=== PATIENT | male | born 1950 | race Caucasian/White ===

== ENCOUNTER 2017-09-10 07:25 | Day surgery (SDC) | payer MEDICARE, OTHER ==
[~2017-09-10 07:25] MED LIST: Cefuroxime 10 MG/ML SYRINGE EYERT SCH; Lidocaine 1% PF 2 ML SDV INJECT SCH; Pilocarpine 4% Ophth Soln 15 ML Bot EYERT SCH
[2017-09-10] MEDS: Polymyxin B/Trimethoprim 10 ML Bottle EYERT SCH ×3 (07:33→09:17)
[2017-09-10] MEDS: Brimonidine 0.2% Ophth Soln 5 ML Bottle EYERT SCH ×3 (07:37→09:17)
[2017-09-10] MEDS: Phenylephrine 2.5% Ophth Soln 2 ML Bot EYERT SCH ×5 (07:40→09:04)
[2017-09-10] MEDS: Tropicamide 1% Ophth Soln 3 ML Bottle EYERT SCH ×4 (07:43→08:35)
--- NOTE | 2017-09-10 07:48 | PCM.PREANE ---
Preanesthetic Assessment - Anesthesia/Transfusion/Family Hx Anesthesia History: Prior Anesthesia Without Reaction Family History of Anesthesia Reaction: No Transfusion History: No Prior Transfusion(s) - Review of Systems General: Other (lymphoma) Pulmonary: Shortness of Breath (with activity), Other (asthma) Cardiovascular: Other (HTN, murmur) Gastrointestinal: Other (reflux controlled on meds) Neurological: No Symptoms Other: Reports: Diabetes (glucose 134 at 0745) - Physical Assessment NPO Status Date: 09/09/17 NPO Status Time: 02:30 (liquids) Pulse: 63 O2 Sat by Pulse Oximetry: 99 Respiratory Rate: 16 Blood Pressure: 145/69 Weight: 117.934 kg ASA Class: 3 Mental Status: Alert & Oriented x3 Dentition: Reports: Normal Dentition Thyro-Mental Finger Breadths: 3 Mouth Opening Finger Breadths: 3 ROM/Head Extension: Full Lungs: Clear to Auscultation, Normal Respiratory Effort Cardiovascular: Regular Rate, Regular Rhythm, Murmurs - Allergies Allergies/Adverse Reactions: Allergies Allergy/AdvReac Type Severity Reaction Status Date / Time iodine Allergy Rash Verified 09/09/17 10:45 oxycodone Allergy Rash Verified 09/09/17 10:45 Penicillins Allergy Rash Verified 09/09/17 10:45 - Blood Blood Available: No Product(s) Available: None - Anesthesia Plan Pre-Op Medication Ordered: None - Acknowledgements Anesthesia Type Planned: MAC Pt an Appropriate Candidate for the Planned Anesthesia: Yes Alternatives and Risks of Anesthesia Discussed w Pt/Guardian: Yes Pt/Guardian Understands and Agrees with Anesthesia Plan: Yes PreAnesthesia Questionnaire - HOME MEDS Home Medications: Home Meds Albuterol Sulfate [Proair Respiclick] 2 puff IH ASDIRECTED PRN 09/09/17 [History ] Aspirin [Halfprin] 81 mg PO DAILY 09/09/17 [History] Baclofen 10 mg PO TID PRN 09/09/17 [History] Dulaglutide [Trulicity] 0.75 mg SQ TU 09/09/17 [History] Gluc 2KCl/Chondr/Mel Hy/Hy Ac [Glucosamine & Chondroitin Cap] 2 cap PO DAILY [History] Lutein/Min/Vit C/Vit E Acetate [Ocuvite Lutein] 1 cap PO DAILY 09/09/17 [History ] Meloxicam 15 mg PO Q12H 09/09/17 [History] atorvaSTATin [Lipitor] 40 mg PO DAILY 09/09/17 [History] metFORMIN [Glucophage] 1,000 mg PO BIDMEALS 09/09/17 [History] - CURRENT (IN HOUSE) MEDS Current Meds: Current Medications Brimonidine Tartrate (Alphagan 0.2% Ophth Soln) 0 ml EYERT ASDIRECTED ANA Stop: 09/10/17 18:00 Last Admin: 09/10/17 07:37 Dose: 1 drop Cefuroxime Sodium (Zinacef) 0 mg EYERT ASDIRECTED ANA Stop: 09/10/17 18:00 Lidocaine HCl (Xylocaine-Mpf 1%) 0 ml INJECT ASDIRECTED ANA Stop: 09/10/17 18:00 Phenylephrine HCl (Stanford-Synephrine 2.5% Ophth Soln) 0 ml EYERT ASDIRECTED ANA Stop: 09/10/17 18:00 Pilocarpine HCl (Pilocar 4% Ophth Soln) 0 ml EYERT ASDIRECTED ANA Stop: 09/10/17 18:00 Polymyxin/Trimethoprim Sulfate (Polytrim Ophth Soln) 0 ml EYERT ASDIRECTED ANA Stop: 09/10/17 18:00 Last Admin: 09/10/17 07:33 Dose: 1 drop Tetracaine HCl (Tetracaine 0.5% Steri-Unit Alda) 0 ml EYERT ASDIRECTED ANA Stop: 09/10/17 18:00 Tropicamide (Mydriacyl 1% Ophth Soln) 0 ml EYERT ASDIRECTED ANA Stop: 09/10/17 18:00
[2017-09-10] MEDS: Tetracaine HCl/PF 0.5% 4 ML Bottle EYERT SCH ×2 (08:51→09:09)
--- NOTE | 2017-09-10 09:22 | PCM48HPAN ---
Post Anesthesia Note - EVALUATION WITHIN 48HRS OF ANESTHETIC Vital Signs in Normal Range: Yes Patient Participated in Evaluation: Yes Respiratory Function Stable: Yes Airway Patent: Yes Cardiovascular Function Stable: Yes Hydration Status Stable: Yes Pain Control Satisfactory: Yes Nausea and Vomiting Control Satisfactory: Yes Mental Status Recovered: Yes Pulse Rate: 61 SaO2: 100 Resp Rate: 16 Blood Pressure: 147/88
== END 2017-09-10 09:30 | disposition home or self-care (01) ==
LOC: JD.SDS 07:25
PROVIDERS: ATTEND Ophthalmology
DX: H25.813 Combined forms of age-related cataract, bilateral (principal); I10 Essential (primary) hypertension; E10.9 Type 1 diabetes mellitus without complications; E78.00 Pure hypercholesterolemia, unspecified; J45.909 Unspecified asthma, uncomplicated; H16.223 Keratoconjunctivitis sicca, not specified as Sjogren's, bilateral; H35.363 Drusen (degenerative) of macula, bilateral; H35.3132 Nonexudative age-related macular degeneration, bilateral, intermediate dry stage; H02.831 Dermatochalasis of right upper eyelid; H16.103 Unspecified superficial keratitis, bilateral; H02.834 Dermatochalasis of left upper eyelid; Z79.899 Other long term (current) drug therapy; K21.9 Gastro-esophageal reflux disease without esophagitis; Z79.82 Long term (current) use of aspirin; Z79.84 Long term (current) use of oral hypoglycemic drugs; Z88.0 Allergy status to penicillin; Z88.5 Allergy status to narcotic agent
CPT/HCPCS: 66984; 82962; C1780; J0697; J2001; A9270-GY

== ENCOUNTER 2017-10-08 07:22 | Day surgery (SDC) | payer MEDICARE, OTHER ==
[~2017-10-08 07:22] MED LIST changes: +Cefuroxime 10 MG/ML SYRINGE EYELF SCH; -Cefuroxime 10 MG/ML SYRINGE EYERT SCH; +Pilocarpine 4% Ophth Soln 15 ML Bot EYELF SCH; -Pilocarpine 4% Ophth Soln 15 ML Bot EYERT SCH
--- NOTE | 2017-10-08 07:36 | PCM.PREANE ---
Preanesthetic Assessment - Anesthesia/Transfusion/Family Hx Anesthesia History: Prior Anesthesia Without Reaction Family History of Anesthesia Reaction: No Transfusion History: No Prior Transfusion(s) - Review of Systems General: No Symptoms, Other (lymphoma) Pulmonary: Other (asthma, controlled) Cardiovascular: Other (HTN, +murmur) Gastrointestinal: No Symptoms Neurological: No Symptoms Other: Reports: Diabetes (non-insulin dependent) - Physical Assessment NPO Status Date: 10/07/17 NPO Status Time: 19:00 Pulse: 75 O2 Sat by Pulse Oximetry: 95 Respiratory Rate: 16 Blood Pressure: 139/75 Weight: 117.934 kg ASA Class: 3 Mental Status: Alert & Oriented x3 Airway Class: Mallampati = 2 Dentition: Reports: Normal Dentition Thyro-Mental Finger Breadths: 2 Mouth Opening Finger Breadths: 2 ROM/Head Extension: Limited/Partial Lungs: Clear to Auscultation, Normal Respiratory Effort Cardiovascular: Regular Rate, Regular Rhythm - Allergies Allergies/Adverse Reactions: Allergies Allergy/AdvReac Type Severity Reaction Status Date / Time iodine Allergy Rash Verified 10/07/17 12:48 oxycodone Allergy Rash Verified 10/07/17 12:48 Penicillins Allergy Rash Verified 10/07/17 12:48 - Blood Blood Available: No Product(s) Available: None - Anesthesia Plan Pre-Op Medication Ordered: None - Acknowledgements Anesthesia Type Planned: MAC Pt an Appropriate Candidate for the Planned Anesthesia: Yes Alternatives and Risks of Anesthesia Discussed w Pt/Guardian: Yes Pt/Guardian Understands and Agrees with Anesthesia Plan: Yes PreAnesthesia Questionnaire - HOME MEDS Home Medications: Home Meds Albuterol Sulfate [Proair Respiclick] 2 puff IH ASDIRECTED PRN 09/09/17 [History ] Aspirin [Halfprin] 81 mg PO DAILY 09/09/17 [History] Baclofen 10 mg PO TID PRN 09/09/17 [History] Dulaglutide [Trulicity] 0.75 mg SQ TU 09/09/17 [History] Gluc 2KCl/Chondr/Mel Hy/Hy Ac [Glucosamine & Chondroitin Cap] 2 cap PO DAILY [History] Lutein/Min/Vit C/Vit E Acetate [Ocuvite Lutein] 1 cap PO DAILY 09/09/17 [History ] atorvaSTATin [Lipitor] 40 mg PO DAILY 09/09/17 [History] metFORMIN [Glucophage] 1,000 mg PO BIDMEALS 09/09/17 [History] Gabapentin [Neurontin] 100 mg PO TID 10/07/17 [History] - CURRENT (IN HOUSE) MEDS Current Meds: Current Medications Brimonidine Tartrate (Alphagan 0.2% Ophth Soln) 0 ml EYELF ASDIRECTED ANA Stop: 10/08/17 19:00 Cefuroxime Sodium (Zinacef) 0 mg EYELF ASDIRECTED ANA Stop: 10/08/17 19:00 Lidocaine HCl (Xylocaine-Mpf 1%) 0 ml INJECT ONETIME ANA Stop: 10/08/17 19:00 Phenylephrine HCl (Stanford-Synephrine 2.5% Ophth Soln) 0 ml EYELF ASDIRECTED ANA Stop: 10/08/17 19:00 Pilocarpine HCl (Pilocar 4% Ophth Soln) 0 ml EYELF ASDIRECTED ANA Stop: 10/08/17 19:00 Polymyxin/Trimethoprim Sulfate (Polytrim Ophth Soln) 0 ml EYELF ASDIRECTED ANA Stop: 10/08/17 19:00 Tetracaine HCl (Tetracaine 0.5% Steri-Unit Alda) 0 ml EYELF ASDIRECTED ANA Stop: 10/08/17 19:00 Tropicamide (Mydriacyl 1% Ophth Soln) 0 ml EYELF ASDIRECTED ANA Stop: 10/08/17 19:00
[2017-10-08] MEDS: Polymyxin B/Trimethoprim 10 ML Bottle EYELF SCH ×3 (07:37→09:26)
[2017-10-08] MEDS: Brimonidine 0.2% Ophth Soln 5 ML Bottle EYELF SCH ×3 (07:40→09:26)
[2017-10-08] MEDS: Phenylephrine 2.5% Ophth Soln 2 ML Bot EYELF SCH ×4 (07:43→08:26)
[2017-10-08] MEDS: Tropicamide 1% Ophth Soln 3 ML Bottle EYELF SCH ×4 (07:47→08:37)
[2017-10-08] MEDS: Tetracaine HCl/PF 0.5% 4 ML Bottle EYELF SCH ×3 (08:54→09:13)
--- NOTE | 2017-10-08 09:28 | PCM48HPAN ---
Post Anesthesia Note - EVALUATION WITHIN 48HRS OF ANESTHETIC Vital Signs in Normal Range: Yes Patient Participated in Evaluation: Yes Respiratory Function Stable: Yes Airway Patent: Yes Cardiovascular Function Stable: Yes Hydration Status Stable: Yes Pain Control Satisfactory: Yes Nausea and Vomiting Control Satisfactory: Yes Mental Status Recovered: Yes Pulse Rate: 66 SaO2: 98 Resp Rate: 14 Temperature: 36.6 C Blood Pressure: 121/62
== END 2017-10-08 09:36 | disposition home or self-care (01) ==
LOC: JD.SDS 07:22
PROVIDERS: ATTEND Ophthalmology
DX: E10.36 Type 1 diabetes mellitus with diabetic cataract (principal); H25.812 Combined forms of age-related cataract, left eye; I10 Essential (primary) hypertension; J45.909 Unspecified asthma, uncomplicated; H91.90 Unspecified hearing loss, unspecified ear; E78.00 Pure hypercholesterolemia, unspecified; H35.363 Drusen (degenerative) of macula, bilateral; H35.3131 Nonexudative age-related macular degeneration, bilateral, early dry stage; H02.831 Dermatochalasis of right upper eyelid; H16.103 Unspecified superficial keratitis, bilateral; H16.223 Keratoconjunctivitis sicca, not specified as Sjogren's, bilateral; H02.834 Dermatochalasis of left upper eyelid; Z87.891 Personal history of nicotine dependence; Z79.4 Long term (current) use of insulin; Z96.1 Presence of intraocular lens; Z98.41 Cataract extraction status, right eye; Z79.899 Other long term (current) drug therapy; Z88.0 Allergy status to penicillin; Z88.5 Allergy status to narcotic agent; Z91.048 Other nonmedicinal substance allergy status
CPT/HCPCS: 66984; C1780; J0697; J2001; A9270-GY

== ENCOUNTER 2020-10-05 14:19 | Emergency (ER) | payer MEDICARE, OTHER ==
--- NOTE | 2020-10-05 14:30 | EDM.PDOC ---
ED HPI GENERAL MEDICAL PROBLEM - General Chief Complaint: Trauma Stated Complaint: [facility] Time Seen by Provider: 10/05/20 14:25 Source of Information: Reports: Patient, EMS, Shelter Records History Limitations: Reports: Altered Mental Status - History of Present Illness INITIAL COMMENTS - FREE TEXT/NARRATIVE: 70-year-old male who is currently a resident of [facility] presents to the ED for evaluation after an unwitnessed fall in his room this afternoon. He was appreciated to have a laceration mid vertex of his scalp with minimal bleeding. No reported loss of consciousness but history from the patient is unreliable. He denies any cervical neck pain. He moves all limbs without any issue. No back pain no rib pain no abdominal pain. He denies headache nausea or vomiting. He declines tetanus diphtheria and pertussis vaccine. Patient carries a diagnosis of progressive supranuclear ophthalmoplegia bracket [id number] [facility] this patient cannot walk normally and therefore has a high propensity to falling. Onset: Today, Sudden Onset Date: 10/05/20 (Cannot clarify exactly when he fell.) Duration: Minutes: Location: Reports: Head, Upper Extremity, Left (Superficial abrasion left elbow), Lower Extremity, Left (Superficial abrasion left knee) Quality: Reports: Ache Severity: Mild (Mild ache at site of laceration) Improves with: Reports: Other (No active bleeding) Worsens with: Reports: None Context: Reports: Trauma (Unwitnessed fall [facility] Denies: Activity, Exercise, Lifting, Sick Contact Associated Symptoms: Denies: Chest Pain, Cough, cough w sputum, Diaphoresis, Fever/Chills, Headaches, Loss of Appetite, Malaise, Nausea/Vomiting, Rash, Seizure, Shortness of Breath, Syncope, Weakness Treatments [employer]PER[employer]: Reports: Other (see below) (None.) - Related Data Allergies Allergy/AdvReac Type Severity Reaction Status Date / Time hydrocodone Allergy Cannot Verified 10/05/20 14:55 Remember iodine Allergy Rash Verified 10/07/17 12:48 oxycodone Allergy Rash Verified 10/07/17 12:48 Penicillins Allergy Rash Verified 10/07/17 12:48 Home Meds: Home Meds Albuterol Sulfate [Proair Respiclick] 2 puff IH ASDIRECTED PRN 09/09/17 [History] atorvaSTATin [Lipitor] 40 mg PO DAILY 09/09/17 [History] metFORMIN [Glucophage] 250 mg PO DAILY 09/09/17 [History] Gabapentin [Neurontin] 600 mg PO DAILY 10/07/17 [History] Aspirin 81 mg PO DAILY 10/05/20 [History] Donepezil HCl 10 mg PO BEDTIME 10/05/20 [History] FLUoxetine HCl [Prozac] 20 mg PO DAILY 10/05/20 [History] Fish Oil/Quartzsite-3 Fatty Acids [Fish Oil 1,000 MG] 1 gm PO DAILY 10/05/20 [History] Glucosam/Chond/Collagen/Hyalur [Glucosamine Chondroitin] 1 each PO BID 10/05/20 [History] Lutein/Min/Vit C/Vit E Acetate [Ocuvite Lutein] 1 each PO DAILY 10/05/20 [History] Multivit-Min/FA/Lycopen/Lutein [Certavite Sr with Lutein Tab] 1 each PO BID 10/05/20 [History] Omeprazole 20 mg PO BID 10/05/20 [History] bisacodyL [Dulcolax] 10 mg PO ASDIRECTED PRN 10/05/20 [History] Past Medical History Cardiovascular History: Reports: High Cholesterol, Other (See Below) (Valvular heart disease) Respiratory History: Reports: COPD (With reversible component) Gastrointestinal History: Reports: GERD (With esophagitis) Genitourinary History: Reports: BPH Psychiatric History: Reports: Depression (History of major depression) Endocrine/Metabolic History: Reports: Diabetes, Type II Other Endocrine/Metabolic History: Type 2 diabetes controlled with Trulicity once weekly 75 mg and Metformin 1 g twice daily Social & Family History - Living Situation & Occupation Living situation: Reports: , Extended Care Facility (Currently a resident of [facility].) Occupation: Disabled Review of Systems - Review of Systems Review Of Systems: See Below Constitutional: Denies: Chills, Diaphoresis, Fever, Weakness, Other Eyes: Reports: No Symptoms Ears: Reports: No Symptoms Nose: Reports: No Symptoms Mouth/Throat: Reports: No Symptoms Respiratory: Reports: No Symptoms Cardiovascular: Reports: No Symptoms GI/Abdominal: Reports: No Symptoms Musculoskeletal: Reports: No Symptoms Skin: Reports: No Symptoms Neurological: Reports: No Symptoms Psychiatric: Reports: No Symptoms ED EXAM, GENERAL - Physical Exam Exam: See Below General Appearance: Alert, WD/WN, Mild Distress, Other (Temperature is 36.1. Heart rate is 71 and sinus. Respiratory is 18 with sats of 93 to 95%. BP 123/63.) Eye Exam: Bilateral Eye: Normal Inspection (No sclericterus or blepharal pallor.) Throat/Mouth: Normal Inspection, Normal Lips, Normal Oropharynx, Other (No obvious ) Head: Other (injuries to his tongue or dentition. Patient does have a superficial lacerations deep abrasion to his mid vertex of his scalp that is not actively bleeding. It will be cleaned up but I do not believe that is going to require suture repair.) Neck: Normal Inspection, Supple, Non-Tender, Full Range of Motion, Other. No: Carotid Bruit, Lymphadenopathy (L), Lymphadenopathy (R) Respiratory/Chest: No Respiratory Distress, Lungs Clear, Normal Breath Sounds, No Accessory Muscle Use (Has complete unopposed range of motion of his cervical spine.), Other (No pain on compression of his ribs collarbones or sternum.) Cardiovascular: Normal Peripheral Pulses, Regular Rate, Rhythm, No Edema, No Gallop, No Murmur, No Rub Peripheral Pulses: 2+: Posterior Tibial (L), Posterior Tibial (R), Dorsalis Pedis (L), Dorsalis Pedis (R), 3+: Carotid (L), Carotid (R) GI/Abdominal: Normal Bowel Sounds, Soft, Non-Tender, No Organomegaly, No Abnormal Bruit, No Mass, Pelvis Stable. No: Guarding, Rigid, Rebound Back Exam: Normal Inspection, Full Range of Motion, Other (No injuries to the thoracic or lumbar spine with no abrasions or contusions.). No: CVA Tenderness (L), CVA Tenderness (R) Extremities: Normal Range of Motion, Non-Tender, No Pedal Edema, Other (Patient has a superficial abrasion to his left posterior elbow and left anterior knee over the patella without any signs of bony injuries.) Neurological: Alert, Oriented, CN II-XII Intact, Normal Cognition, Normal Gait Psychiatric: Normal Affect, Normal Mood Skin Exam: Warm, Dry, Intact, Normal Color, No Rash Course - Vital Signs Last Recorded V/S: Last Vital Signs Temp 36.1 C 10/05/20 14:25 Pulse 71 10/05/20 14:25 Resp 18 10/05/20 14:25 BP 123/63 10/05/20 14:25 Pulse Ox 93 L 10/05/20 14:25 - Orders/Labs/Meds Orders: Active Orders 24 hr Category Date Time Status Blood Glucose Check, Bedside [RC] ONETIME Care 10/05/20 14:29 Active Labs: Laboratory Tests 10/05/20 Range/Units 14:35 POC Glucose 129 H (70-99) mg/dL - Radiology Interpretation Free Text/Narrative:: 70-year-old male who is currently a resident of [facility] presents to the ED per [place] [facility]. Apparently he was found on the floor of his room and therefore suffered an unwitnessed fall. It is unclear if he lost consciousness. He cannot report to me that he hit any furniture. He has a superficial laceration deep abrasion to the mid vertex aspect of his scalp that measures a little over a centimeter in length. He does not appear deep enough to require suture repair. There is a very minimal surrounding scalp hematoma. He has full unopposed range of motion of his cervical spine. Chest wall and abdomen are normal. He has superficial abrasion to his left elbow and left knee with full range of motion and no bony injury. Plan CT head to be done. - Re-Assessments/Exams Free Text/Narrative Re-Assessment/Exam: 10/05/20 14:58 CT of the head reveals it degenerative changes appropriate for the patient's age. There is perhaps slightly increased atrophy of both frontal lobes as compared to normal. There is prominence of the sulci. Diffuse small vessel ischemic change appreciated in both basal ganglia. No intracranial bleeding no mass-effect and no skull fractures identified. Patient is superficial abrasion to vertex of scalp will not really require any laceration repair. Requires bacitracin ointment once daily until healed. He will be returned to the retirement. Departure - Departure Time of Disposition: 15:01 Disposition: DC/Tfer to [facility] Condition: Fair Clinical Impression: Abrasion of left elbow, initial encounter, Abrasion, left knee, initial encounter Fall at retirement Qualifiers: Encounter type: initial encounter Qualified Code(s): W19.XXXA - Unspecified fall, initial encounter Scalp abrasion Qualifiers: Encounter type: initial encounter Qualified Code(s): S00.01XA - Abrasion of scalp, initial encounter - Discharge Information *PRESCRIPTION DRUG MONITORING PROGRAM REVIEWED*: Not Applicable *COPY OF PRESCRIPTION DRUG MONITORING REPORT IN PATIENT YASMIN: Not Applicable Instructions: Facial or Scalp Contusion, [id number] Forms: ED Department Discharge Additional Instructions: Evaluation in the emergency room today at the request of [facility] where you were currently residing. You apparently were found on the floor of your room having sustained an unwitnessed fall. You have a mild contusion to the mid vertex of the scalp with superficial abrasion which was bleeding. CT scan of the head reveals no intracranial bleeding or mass-effect or skull fracture. Treatment of the wound is to daily cleanse it with soap and water. Shampoo is okay. Then apply topical antibiotic such as bacitracin or Polysporin once daily to the wound until healed. Other injuries include superficial abrasion to the left posterior elbow and left anterior knee with no bony injuries identified. No other treatment is required. Continue all current medications as previously prescribed Sepsis Event Note (ED) - Focused Exam Vital Signs: Vital Signs Temp Pulse Resp BP Pulse Ox 10/05/20 14:25 36.1 C 71 18 123/63 93 L - My Orders Last 24 Hours: My Active Orders 10/05/20 14:29 Blood Glucose Check, Bedside [RC] ONETIME - Assessment/Plan Last 24 Hours: My Active Orders 10/05/20 14:29 Blood Glucose Check, Bedside [RC] ONETIME
--- NOTE | 2020-10-05 14:58 | CT ---
Head CT Technique: Multiple axial sections through the brain were obtained. Intravenous contrast was not utilized. Reconstructed coronal and sagittal images were also obtained. Comparison: No prior intracranial imaging is available. Findings: Ventricles along with basal cisterns and sulci over the convexities are mildly prominent. Slight atrophy is seen within both frontal regions. No abnormal parenchymal densities are seen. No evidence of intracranial hemorrhage. No midline shift or mass-effect is appreciated. Bone window settings were reviewed. Visualized mastoid and paranasal sinuses show nothing acute. No acute calvarial finding is seen. Impression: 1. Senescent change as described above. 2. Nothing acute is appreciated on noncontrast head CT study. Diagnostic code #2
== END 2020-10-05 16:00 ==
LOC: JD.ED 14:19
DX: S00.01XA Abrasion of scalp, initial encounter (principal); S50.312A Abrasion of left elbow, initial encounter; S80.212A Abrasion, left knee, initial encounter; E78.00 Pure hypercholesterolemia, unspecified; J44.9 Chronic obstructive pulmonary disease, unspecified; K21.9 Gastro-esophageal reflux disease without esophagitis; E11.9 Type 2 diabetes mellitus without complications; Z79.82 Long term (current) use of aspirin; Z79.84 Long term (current) use of oral hypoglycemic drugs; Z88.0 Allergy status to penicillin; Z88.5 Allergy status to narcotic agent; Z91.040 Latex allergy status; W18.39XA Other fall on same level, initial encounter; W26.8XXA Contact with other sharp object(s), not elsewhere classified, initial encounter; Y92.009 Unspecified place in unspecified non-institutional (private) residence as the place of occurrence of the external cause; R41.81 Age-related cognitive decline
CPT/HCPCS: 70450; 70450-26; 82947; 99284; 99284-25